=== PATIENT | female | born 2000 | race Caucasian/White ===

== ENCOUNTER → 2023-07-07 | Day surgery (SDC) | payer OTHER ==
--- NOTE | 2023-07-07 13:08 | RAD REPORT ---
EXAM DESCRIPTION: Ultrasound-guided vacuum assisted right breast core biopsy CLINICAL HISTORY: Breast mass N63.13 COMPARISON: No comparisons FINDINGS: Risks and benefits were discussed with the patient. Informed consent was obtained and time -out was performed. Initial scanning demonstrated a lobulated hypoechoic wider than tall 1.3 x 1.2 x 1.1 cm mass approxim ately at 7 o'clock position. The patient's right breast was prepped and draped in the usual sterile f ashion. 1% lidocaine was used for local anesthetic purposes. Utilizing aseptic technique and ultrasound guidance, a 12 gauge vacuum assisted core biopsy device wa s used to obtain 3 core specimens through the mass of interest. A post biopsy clip was then placed. All collected material was sent to pathology. Patient tolerated procedure well. IMPRESSION: Successful ultrasound guided vacuum assisted right breast mass biopsy.
== END ==
LOC: DS 08:00
PROVIDERS: ATTEND Surgery
DX: D24.1 Benign neoplasm of right breast (principal)
CPT/HCPCS: 19083; 88305